=== PATIENT | male | born 2005 | race Caucasian/White ===

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

== ENCOUNTER 2023-11-09 21:03 | Inpatient (IN) ==
[2023-11-09 22:13] LABS: ABS Basophils 0.1 10^3/uL (0.0-0.1); ABS Lymphocytes 2.3 10^3/uL (1.0-4.8); ABS Monocytes 0.9 10^3/uL (0.0-1.1); ABS Neutrophils 9.7 10^3/uL (1.5-7.6); ABS Nucleated RBC 0.01 10^3/ul; Eosinophil % 0.3 %; Hematocrit 49.7 % (38-53); Hemoglobin 16.8 g/dL (13.2-16.3); Lymphocyte % 17.6 %; Mean Corpuscular Hgb Conc 33.7 g/dL (31-36); Mean Platelet Volume 8.9 fL (7.5-11.2); Nucleated Red Blood Cells % 0.1 %/100WBC (0.0-0.8); Platelet Count 208 10^3/uL (150-450); Red Blood Count 5.98 10^6/uL (4.06-5.63); Red Cell Distribution Width 14.8 % (12-17); White Blood Count 12.9 10^3/uL (3.6-10.2)
[2023-11-09 22:31] LABS: ALT 32 U/L (7-52); AST 20 U/L (13-39); Acetaminophen < 15 mcg/mL; Albumin 5.2 g/dL (3.2-5.2); Albumin/Globulin Ratio 2.1 (1-3); Alcohol, S < 13 mg/dL (<13); Alkaline Phosphatase 52 U/L (35-149); Anion Gap 10 mmol/L (2-16); Blood Urea Nitrogen 15 mg/dL (6-24); CO2 Carbon Dioxide 22 mmol/L (22-32); Chloride 105 mmol/L (101-111); Creatinine, Serum 0.82 mg/dL (0.67-1.17); Globulin 2.5 g/dL (2-4); Glucose 106 mg/dL (70-100); Potassium 3.7 mmol/L (3.5-5.0); Salicylate < 2.50 mg/dL (<30); Sodium 137 mmol/L (135-145); Total Bilirubin 0.6 mg/dL (0.2-1.0); Total Protein 7.7 g/dL (6.4-8.9)
[2023-11-09 22:35] LABS: Urine Benzodiazepine Screen None Detected (None Detect); Urine Cannabinoids Screen Presumptive Positive (None Detect); Urine Opiates Screen None Detected (None Detect)
[2023-11-09 22:46] LABS: TSH Ultra Thyroid Stim Horm 3.17 mcIU/mL (0.34-5.60)
[2023-11-09 22:47] LABS: Urine Appearance Cloudy; Urine Bilirubin Negative (Negative); Urine Blood Negative (Negative); Urine Color Yellow; Urine Glucose Negative (Negative); Urine Ketones Trace (Negative); Urine Nitrite Negative (Negative); Urine Protein Negative (Negative); Urine Specific Gravity 1.023 (1.002-1.030); Urine Urobilinogen Negative (Negative)
[2023-11-10] MEDS ORDERED: Midazolam 2 mg/2 ml VIAL 1 mg/ml 2 ml VIAL (2 mg) IM ONE (09:35)
[2023-11-10] MEDS ORDERED: Haloperidol 5 mg/ml SDV IV/IM 5 MG/ML AMP IM ONE (09:35)
[2023-11-10] MEDS ORDERED: Al Hydrox/Mg Hydrox/Simet LIQ 30 ML UDC PO PRN (11:33)
[2023-11-10] MEDS: Vitamin THERAPEUTIC TAB PO SCH (12:16)
[2023-11-10] MEDS: Nicotine PATCH 21 MG/24 HR PATCH TRANSDERM SCH (12:16)
[2023-11-10] MEDS: Nicotine GUM 2MG FRUIT FLAVOR PO PRN (19:38)
[2023-11-11] MEDS: Nicotine PATCH 21 MG/24 HR PATCH TRANSDERM SCH ×2 (06:36→09:21)
[2023-11-11] MEDS: Vitamin THERAPEUTIC TAB PO SCH (09:21)
[2023-11-11] MEDS ORDERED: Haloperidol 5 mg/ml SDV IV/IM 5 MG/ML AMP ONE (18:14)
[2023-11-11] MEDS ORDERED: LORazepam 2 mg VIAL 1 ml ONE (18:15)
[2023-11-12] MEDS: Vitamin THERAPEUTIC TAB PO SCH (07:03)
[2023-11-12] MEDS: Nicotine PATCH 21 MG/24 HR PATCH TRANSDERM SCH (07:07)
[2023-11-12 10:39] LABS: HDL Cholesterol 35.6 mg/dL
[2023-11-12] MEDS: Nicotine GUM 2MG FRUIT FLAVOR PO PRN (15:02)
[2023-11-13] MEDS: Vitamin THERAPEUTIC TAB PO SCH (07:18)
[2023-11-13] MEDS: Nicotine PATCH 21 MG/24 HR PATCH TRANSDERM SCH (09:35)
[2023-11-14] MEDS: Nicotine GUM 2MG FRUIT FLAVOR PO PRN (07:32)
[2023-11-14] MEDS: Vitamin THERAPEUTIC TAB PO SCH (07:32)
[2023-11-14] MEDS: Nicotine PATCH 21 MG/24 HR PATCH TRANSDERM SCH (07:34)
[2023-11-15] MEDS: Vitamin THERAPEUTIC TAB PO SCH (07:59)
[2023-11-15] MEDS: Nicotine PATCH 21 MG/24 HR PATCH TRANSDERM SCH (11:50)
[2023-11-16] MEDS: Vitamin THERAPEUTIC TAB PO SCH (07:17)
[2023-11-16] MEDS: Nicotine PATCH 21 MG/24 HR PATCH TRANSDERM SCH (07:18)
[2023-11-17] MEDS: Nicotine PATCH 21 MG/24 HR PATCH TRANSDERM SCH (08:10)
[2023-11-17] MEDS: Vitamin THERAPEUTIC TAB PO SCH (08:10)
[2023-11-17] MEDS: Nicotine GUM 2MG FRUIT FLAVOR PO PRN (19:50)
[2023-11-18] MEDS: Vitamin THERAPEUTIC TAB PO SCH (07:53)
[2023-11-18] MEDS: Nicotine PATCH 21 MG/24 HR PATCH TRANSDERM SCH (07:54)
[2023-11-18] MEDS: Nicotine GUM 2MG FRUIT FLAVOR PO PRN (09:24)
[2023-11-18 20:15] LABS: Albumin 4.5 g/dL (3.2-5.2); Albumin/Globulin Ratio 2.3 (1-3); Calcium 9.3 mg/dL (8.6-10.3); Creatinine, Serum 1.02 mg/dL (0.67-1.17); Potassium 3.7 mmol/L (3.5-5.0); Total Bilirubin 0.4 mg/dL (0.2-1.0); Total Protein 6.5 g/dL (6.4-8.9); eGFR CKD-EPI 107.9 (>60)
[2023-11-18 20:59] LABS: Lithium 0.3 mmol/L (0.6-1.2)
[2023-11-19] MEDS: Vitamin THERAPEUTIC TAB PO SCH (08:18)
[2023-11-19] MEDS: Nicotine PATCH 21 MG/24 HR PATCH TRANSDERM SCH (08:19)
[2023-11-20] MEDS: Vitamin THERAPEUTIC TAB PO SCH (07:39)
[2023-11-20] MEDS: Nicotine PATCH 21 MG/24 HR PATCH TRANSDERM SCH (07:40)
[2023-11-21] MEDS: Vitamin THERAPEUTIC TAB PO SCH (08:30)
[2023-11-21] MEDS: Nicotine PATCH 21 MG/24 HR PATCH TRANSDERM SCH (08:30)
[2023-11-22] MEDS: Vitamin THERAPEUTIC TAB PO SCH (08:00)
[2023-11-22] MEDS: Nicotine PATCH 21 MG/24 HR PATCH TRANSDERM SCH (11:36)
[2023-11-22 19:59] LABS: Lithium 0.54 mmol/L (0.6-1.2)
[2023-11-22 20:19] LABS: ALT 36 U/L (7-52); Albumin 4.9 g/dL (3.2-5.2); Albumin/Globulin Ratio 2.2 (1-3); Alkaline Phosphatase 44 U/L (35-149); Anion Gap 8 mmol/L (2-16); Blood Urea Nitrogen 18 mg/dL (6-24); CO2 Carbon Dioxide 29 mmol/L (22-32); Calcium 10.1 mg/dL (8.6-10.3); Chloride 99 mmol/L (101-111); Creatinine, Serum 0.95 mg/dL (0.67-1.17); Globulin 2.2 g/dL (2-4); Glucose 112 mg/dL (70-100); Sodium 136 mmol/L (135-145); Total Bilirubin 0.4 mg/dL (0.2-1.0); Total Protein 7.1 g/dL (6.4-8.9); eGFR CKD-EPI 117.5 (>60)
[2023-11-23 07:55] VITALS: BP 142/74
[2023-11-23] MEDS: Vitamin THERAPEUTIC TAB PO SCH (08:49)
[2023-11-23] MEDS: Nicotine PATCH 21 MG/24 HR PATCH TRANSDERM SCH (08:50)
[2023-11-23] MEDS ORDERED: Lithium Carbonate ER 450mg TAB PO SCH (21:00)
== END 2023-11-23 14:35 | disposition home or self-care (01) | DRG 753 ==
LOC: ED 21:03 → EDHOLD 11-10 09:30 → BSU 11-10 10:34
PROVIDERS: ADMIT Psychiatry & Neurology Psychiatry; ATTEND Psychiatry & Neurology Psychiatry

== ENCOUNTER 2024-03-31 11:27 | Inpatient (IN) ==
[2024-03-31] MEDS ORDERED: Al Hydrox/Mg Hydrox/Simet LIQ 30 ML UDC PO PRN (14:33)
[2024-03-31 15:30] LABS: ABS Basophils 0.1 10^3/uL (0.0-0.1); ABS Neutrophils 11.1 10^3/uL (1.5-7.6); ABS Nucleated RBC 0.01 10^3/ul; Eosinophil % 0.1 %; Hematocrit 49.1 % (38-53); Hemoglobin 16.4 g/dL (13.2-16.3); Lymphocyte % 14.1 %; Mean Corpuscular Hemoglobin 29.1 pg (27-33); Mean Corpuscular Hgb Conc 33.5 g/dL (31-36); Mean Corpuscular Volume 86.8 fL (80-97); Mean Platelet Volume 9.3 fL (7.5-11.2); Nucleated Red Blood Cells % 0.1 %/100WBC (0.0-0.8); Platelet Count 228 10^3/uL (150-450); Red Blood Count 5.66 10^6/uL (4.06-5.63); Red Cell Distribution Width 13.6 % (12-17); White Blood Count 14.3 10^3/uL (3.6-10.2)
[2024-03-31 15:36] LABS: Urine Appearance Clear; Urine Bilirubin Negative (Negative); Urine Blood Negative (Negative); Urine Color Yellow; Urine Glucose Negative (Negative); Urine Ketones 2+ (Negative); Urine Nitrite Negative (Negative); Urine Protein 1+ (>=30 mg/dL) (Negative); Urine Urobilinogen Negative (Negative)
[2024-03-31 15:45] LABS: Urine Bacteria Absent /HPF (Absent); Urine Red Blood Cell Trace(0-2/hpf) /HPF (0-Trace); Urine Squamous Epithelial Cell Present /HPF (Absent); Urine White Blood Cell 2+(11-20/hpf) /HPF (0-Trace)
[2024-03-31 15:56] LABS: Urine Benzodiazepine Screen None Detected (None Detect); Urine Cannabinoids Screen Presumptive Positive (None Detect); Urine Opiates Screen None Detected (None Detect)
[2024-03-31 15:57] LABS: ALT 22 U/L (7-52); AST 26 U/L (13-39); Acetaminophen < 15 mcg/mL; Albumin 5.5 g/dL (3.2-5.2); Albumin/Globulin Ratio 2.6 (1-3); Alcohol, S < 13 mg/dL (<13); Alkaline Phosphatase 42 U/L (35-149); Anion Gap 7 mmol/L (2-16); Blood Urea Nitrogen 18 mg/dL (6-24); CO2 Carbon Dioxide 25 mmol/L (22-32); Calcium 10.8 mg/dL (8.6-10.3); Chloride 102 mmol/L (101-111); Creatine Kinase 563 U/L (10-223); Creatinine, Serum 1.11 mg/dL (0.67-1.17); Globulin 2.1 g/dL (2-4); Glucose 136 mg/dL (70-100); Potassium 4.5 mmol/L (3.5-5.0); Salicylate < 2.50 mg/dL (<30); Sodium 134 mmol/L (135-145); Total Bilirubin 0.6 mg/dL (0.2-1.0); Total Protein 7.6 g/dL (6.4-8.9); eGFR CKD-EPI 96.9 (>60)
[2024-03-31 16:11] LABS: TSH Ultra Thyroid Stim Horm 5.69 mcIU/mL (0.34-5.60)
[2024-03-31] MEDS: OLANZapine 10 mg TAB*ODT PO ONE (17:12)
[2024-03-31] MEDS: Lithium Carbonate ER 450mg TAB PO SCH (19:59)
[2024-04-01 08:54] LABS: HDL Cholesterol 38.3 mg/dL
[2024-04-01 09:11] LABS: Free T3 4.52 pg/mL (2.5-3.9)
[2024-04-01 09:13] LABS: Free T4 1.13 ng/dL (0.61-1.12)
[2024-04-03] MEDS: Vitamin THERAPEUTIC TAB PO SCH (08:27)
[2024-04-03] MEDS ORDERED: Lorazepam PYXIS KEY PRN (15:02)
[2024-04-03] MEDS: LORazepam 2 mg VIAL 1 ml IM ONE (15:10)
[2024-04-03] MEDS: chlorproMAZINE 25 MG/ML 2 ML (50 MG) IM ONE (15:11)
[2024-04-03] MEDS: LORazepam 2 mg VIAL 1 ml ONE (15:12)
[2024-04-03] MEDS: chlorproMAZINE 25 MG/ML 2 ML (50 MG) ONE (15:12)
[2024-04-04] MEDS: Haloperidol 5 mg/ml SDV IV/IM 5 MG/ML AMP IM ONE (11:19)
[2024-04-04] MEDS: LORazepam 2 mg VIAL 1 ml IM ONE (11:19)
[2024-04-04] MEDS ORDERED: Lorazepam PYXIS KEY PRN (11:31)
[2024-04-04] MEDS: Haloperidol 5 mg/ml SDV IV/IM 5 MG/ML AMP ONE (11:42)
[2024-04-04] MEDS: LORazepam 2 mg VIAL 1 ml ONE (11:43)
[2024-04-09] MEDS: Paliperidone SUSTENNA 234 MG/1.5 ML IM ONE (10:59)
[2024-04-12] MEDS: Paliperidone SUSTENNA 156 MG/1 ML IM ONE (12:48)
[2024-04-14 08:46] VITALS: BP 132/62
== END 2024-04-14 11:57 | disposition home or self-care (01) | DRG 753 ==
LOC: ED 11:27 → EDHOLD 14:33 → BSU 15:01
PROVIDERS: ADMIT Student in an Organized Health Care Education/Training Program; ATTEND Psychiatry & Neurology Psychiatry

== ENCOUNTER 2024-05-24 13:02 | Inpatient (IN) ==
[2024-05-24 14:07] LABS: ABS Eosinophils 0.2 10^3/uL (0.0-0.5); ABS Lymphocytes 2.2 10^3/uL (1.0-4.8); ABS Monocytes 0.5 10^3/uL (0.0-1.1); ABS Neutrophils 4.3 10^3/uL (1.5-7.6); Eosinophil % 2.7 %; Hematocrit 45.2 % (38-53); Hemoglobin 15.4 g/dL (13.2-16.3); Lymphocyte % 30.9 %; Mean Corpuscular Hemoglobin 29.8 pg (27-33); Mean Corpuscular Volume 87.8 fL (80-97); Mean Platelet Volume 8.8 fL (7.5-11.2); Nucleated Red Blood Cells % 0.1 %/100WBC (0.0-0.8); Platelet Count 214 10^3/uL (150-450); Red Blood Count 5.15 10^6/uL (4.06-5.63); Red Cell Distribution Width 13.4 % (12-17); White Blood Count 7.3 10^3/uL (3.6-10.2)
[2024-05-24 15:07] LABS: Urine Appearance Clear; Urine Bilirubin Negative (Negative); Urine Blood Negative (Negative); Urine Color Yellow; Urine Glucose Negative (Negative); Urine Ketones Negative (Negative); Urine Nitrite Negative (Negative); Urine Protein Negative (Negative); Urine Specific Gravity 1.023 (1.002-1.030); Urine Urobilinogen Negative (Negative)
[2024-05-24 15:19] LABS: Urine Bacteria Absent /HPF (Absent); Urine Red Blood Cell 1+(3-5/hpf) /HPF (0-Trace); Urine Squamous Epithelial Cell Present /HPF (Absent); Urine White Blood Cell 1+(6-10/hpf) /HPF (0-Trace)
[2024-05-24 15:21] LABS: ALT 20 U/L (7-52); AST 21 U/L (13-39); Acetaminophen < 15 mcg/mL; Albumin 4.8 g/dL (3.2-5.2); Albumin/Globulin Ratio 2.7 (1-3); Alcohol, S < 13 mg/dL (<13); Alkaline Phosphatase 41 U/L (35-149); Anion Gap 7 mmol/L (2-16); Blood Urea Nitrogen 18 mg/dL (6-24); CO2 Carbon Dioxide 26 mmol/L (22-32); Calcium 9.7 mg/dL (8.6-10.3); Chloride 106 mmol/L (101-111); Creatinine, Serum 1.07 mg/dL (0.67-1.17); Globulin 1.8 g/dL (2-4); Glucose 116 mg/dL (70-100); Lithium 0.46 mmol/L (0.6-1.2); Potassium 4.3 mmol/L (3.5-5.0); Salicylate < 2.50 mg/dL (<30); Sodium 139 mmol/L (135-145); Total Bilirubin 0.4 mg/dL (0.2-1.0); Total Protein 6.6 g/dL (6.4-8.9); eGFR CKD-EPI 101.2 (>60)
[2024-05-24 15:33] LABS: TSH Ultra Thyroid Stim Horm 2.06 mcIU/mL (0.34-5.60)
[2024-05-24 15:55] LABS: Urine Benzodiazepine Screen None Detected (None Detect); Urine Cannabinoids Screen Presumptive Positive (None Detect); Urine Opiates Screen None Detected (None Detect)
[2024-05-24] MEDS ORDERED: Al Hydrox/Mg Hydrox/Simet LIQ 30 ML UDC PO PRN (22:27)
[2024-05-24] MEDS: Lithium Carbonate ER 450mg TAB PO SCH (23:57)
[2024-05-25] MEDS: OLANZapine 10 mg TAB*ODT PO ONE (08:23)
[2024-05-25] MEDS: Vitamin THERAPEUTIC TAB PO SCH (08:24)
[2024-05-25] MEDS: Nicotine PATCH 21 MG/24 HR PATCH TRANSDERM SCH (08:24)
[2024-05-26 08:16] LABS: HDL Cholesterol 37.3 mg/dL
[2024-05-29 08:14] LABS: Lithium 1.15 mmol/L (0.6-1.2)
[2024-06-09] MEDS: Paliperidone SUSTENNA 234 MG/1.5 ML IM ONE (14:34)
[2024-06-11 09:42] VITALS: BP 126/72
== END 2024-06-11 09:42 | disposition home or self-care (01) | DRG 753 ==
LOC: ED 13:02 → EDHOLD 22:00 → BSU 05-25 03:10
PROVIDERS: ADMIT Psychiatry & Neurology Psychiatry; ATTEND Student in an Organized Health Care Education/Training Program

== ENCOUNTER 2024-09-01 21:23 | Inpatient (IN) ==
[2024-09-01 23:21] LABS: ABS Lymphocytes 1.5 10^3/uL (1.0-4.8); ABS Monocytes 0.4 10^3/uL (0.0-1.1); ABS Neutrophils 2.9 10^3/uL (1.5-7.6); Hematocrit 46.5 % (38-53); Hemoglobin 15.6 g/dL (13.2-16.3); Lymphocyte % 30.8 %; Mean Corpuscular Hemoglobin 28.5 pg (27-33); Mean Corpuscular Hgb Conc 33.5 g/dL (31-36); Mean Corpuscular Volume 85.1 fL (80-97); Mean Platelet Volume 8.7 fL (7.5-11.2); Nucleated Red Blood Cells % 0.1 %/100WBC (0.0-0.8); Platelet Count 155 10^3/uL (150-450); Red Blood Count 5.46 10^6/uL (4.06-5.63); White Blood Count 4.9 10^3/uL (3.6-10.2)
[2024-09-01 23:26] LABS: Urine Appearance Clear; Urine Bilirubin Negative (Negative); Urine Blood Negative (Negative); Urine Color Light-Yellow; Urine Glucose Negative (Negative); Urine Ketones Negative (Negative); Urine Nitrite Negative (Negative); Urine Protein Negative (Negative); Urine Specific Gravity 1.026 (1.002-1.030); Urine Urobilinogen Negative (Negative); Urine pH 6.5 (5.0-8.0)
[2024-09-01 23:33] LABS: Urine Benzodiazepine Screen None Detected (None Detect); Urine Cannabinoids Screen Presumptive Positive (None Detect); Urine Opiates Screen None Detected (None Detect)
[2024-09-01 23:47] LABS: Lithium < 0.16 mmol/L (0.6-1.2); Valproic Acid < 10.0 mcg/mL (50-100)
[2024-09-01 23:48] LABS: ALT 26 U/L (7-52); AST 16 U/L (13-39); Acetaminophen < 15 mcg/mL; Albumin 4.7 g/dL (3.2-5.2); Albumin/Globulin Ratio 2.4 (1-3); Alcohol, S < 13 mg/dL (<13); Alkaline Phosphatase 53 U/L (35-149); Anion Gap 8 mmol/L (2-16); Blood Urea Nitrogen 16 mg/dL (6-24); CO2 Carbon Dioxide 22 mmol/L (22-32); Calcium 9.7 mg/dL (8.6-10.3); Chloride 107 mmol/L (101-111); Creatinine, Serum 0.79 mg/dL (0.67-1.17); Glucose 99 mg/dL (70-100); Potassium 3.9 mmol/L (3.5-5.0); Salicylate < 2.50 mg/dL (<30); Sodium 137 mmol/L (135-145); Total Bilirubin 0.3 mg/dL (0.2-1.0); Total Protein 6.7 g/dL (6.4-8.9); eGFR CKD-EPI 129.6 (>60)
[2024-09-02 00:03] LABS: TSH Ultra Thyroid Stim Horm 2.17 mcIU/mL (0.34-5.60)
[2024-09-02] MEDS ORDERED: Al Hydrox/Mg Hydrox/Simet LIQ 30 ML UDC PO PRN (05:03)
[2024-09-02] MEDS: Vitamin THERAPEUTIC TAB PO SCH (10:41)
[2024-09-02] MEDS: Lithium Carbonate ER 450mg TAB PO SCH (20:43)
[2024-09-04] MEDS: Lithium Carbonate ER 450mg TAB PO SCH (11:30)
[2024-09-04] MEDS: Lithium Carbonate ER 450mg TAB ONE (13:13)
[2024-09-08 08:33] LABS: HDL Cholesterol 32.2 mg/dL
[2024-09-10 09:10] VITALS: BP 132/83
== END 2024-09-11 12:00 | disposition home or self-care (01) | DRG 753 ==
LOC: ED 21:23 → EDHOLD 23:47 → BSU 09-02 05:25
PROVIDERS: ADMIT Student in an Organized Health Care Education/Training Program; ATTEND Psychiatry & Neurology Psychiatry